=== PATIENT | female | born 1950 | race Caucasian/White ===

== ENCOUNTER 2019-06-18 13:52 | Inpatient (IN) ==
[~2019-06-18 13:52] MED LIST: *HR* Etomidate 20 MG/10 ML AMPUL IVP ONE; *HR* Midazolam HCl 2 MG/2 ML VIAL IV ONE; Aminoglycoside Consult 1 EACH MC ONE
[2019-06-18] MEDS ORDERED: Ondansetron 4 MG/2 ML VIAL IVP PRN ×2 (17:14→21:34)
[2019-06-18] MEDS ORDERED: Naloxone 0.4 MG/ML INJ IVP PRN ×2 (17:14→21:34)
[2019-06-18] MEDS ORDERED: Albuterol 2.5 MG/3 ML NEBULIZER IH PRN ×2 (17:17→21:34)
[2019-06-18] MEDS ORDERED: *HR* Heparin 5,000 UNIT/ML VIAL SQ SCH (18:00)
[2019-06-18] MEDS ORDERED: methylPREDNISolone 125 MG/2 ML VIAL IVP SCH (18:00)
[2019-06-18 18:18] LABS: ABG Base Excess 1 mEq/L (-2 to 3); ABG HCO3 34 mEq/L (21-27); ABG Oxygen Saturation 94 % (95-98); ABG PCO2 107 mmHg (35-45); ABG PH 7.11 pH Units (7.32-7.45); ABG PO2 101 mmHg (85-104); ABG TCO2 37 mEq/L (20-26); Blood Gas Modality AVAPS; Blood Gas VT 500 cc
[2019-06-18] MEDS ORDERED: methylPREDNISolone 125 MG/2 ML VIAL IVP STA ×2 (18:26→21:34)
[2019-06-18] MEDS ORDERED: Ipratropium Neb 0.5 MG NEBULIZER IH STA (18:26)
[2019-06-18] MEDS ORDERED: Levalbuterol Neb 1.25 MG/3 ML IH STA (18:26)
[2019-06-18 18:28] LABS: Basophils % 0.1 %; Hematocrit 39.5 % (35.3-44.9); Hemoglobin 12.3 g/dL (11.5-15.4); Immature Granulocytes % 0.3 % (0-4); Lymphocytes # 0.2 K/mcL (0.6-4.6); Lymphocytes % 2.4 %; Mean Corpuscular HGB Conc 31.1 g/dL (31.6-35.5); Mean Corpuscular Hemoglobin 33.5 pg (28.0-33.3); Mean Corpuscular Volume 107.6 fL (83.0-100.0); Mean Platelet Volume 11.1 fL (9.4-12.4); Monocytes # 0.8 K/mcL (0.0-1.3); Monocytes % 8.7 %; Neutrophils # 8.2 K/mcL (1.6-8.9); Platelet Count 161 K/mcL (140-400); Red Blood Count 3.67 M/mcL (3.82-4.97); Red Cell Distribution Width 12.9 % (11.5-14.5); Segmented Neutrophils % 88.5 %; White Blood Count 9.3 K/mcL (4.3-11.1)
[2019-06-18 18:35] LABS: BUN/Creatinine Ratio 36 (6-26); Blood Urea Nitrogen 18 mg/dL (8-23); Calcium 8.7 mg/dL (8.6-10.3); Carbon Dioxide 30 mEq/L (23-29); Chloride 111 mEq/L (98-107); Glucose 171 mg/dL (70-105); Osmolality,Calculated 306 (280-300); Potassium 4.1 mEq/L (3.5-5.1); Sodium 145 mEq/L (136-145); eGFR For African Americans > 60 (> 60); eGFR For Non-African Americans > 60 (> 60)
[2019-06-18 18:41] LABS: Polychromasia 1+ (Not Present)
[2019-06-18] MEDS ORDERED: Artificial Tears SOLN 15 ML BOTTLE BOTH EYES PRN ×2 (19:21→21:34)
[2019-06-18] MEDS ORDERED: FentaNYL (PF) 1,000 MCG in 0.9 % Sodium Chloride 80 ML IVC SCH (19:30)
[2019-06-18] MEDS ORDERED: Ipratropium/Albuterol Neb 3 ML IH SCH (20:00)
[2019-06-18] MEDS ORDERED: Artificial Tears SOLN 15 ML BOTTLE BOTH EYES SCH (20:00)
[2019-06-18] MEDS ORDERED: Chlorhexidine Rinse 15 ML MOUTHWASH MM SCH (21:00)
[2019-06-18] MEDS: FentaNYL (PF) 1,000 MCG in 0.9 % Sodium Chloride 80 ML IVC SCH (22:07)
[2019-06-18] MEDS: Artificial Tears SOLN 15 ML BOTTLE BOTH EYES SCH (23:02)
[2019-06-19] MEDS ORDERED: methylPREDNISolone 125 MG/2 ML VIAL IVP SCH
[2019-06-19] MEDS: Ipratropium/Albuterol Neb 3 ML IH SCH ×7 (00:22→23:23)
[2019-06-19 00:40] LABS: ABG Base Excess 2 mEq/L (-2 to 3); ABG HCO3 32 mEq/L (21-27); ABG Oxygen Saturation 100 % (95-98); ABG PCO2 79 mmHg (35-45); ABG PH 7.21 pH Units (7.32-7.45); ABG PO2 383 mmHg (85-104); ABG TCO2 34 mEq/L (20-26); Blood Gas Modality AF; Blood Gas VT 450 cc
[2019-06-19 00:57] LABS: Adenovirus Not Detected (Not Detect); Bordetella Pertussis Not Detected (Not Detect); Chlamydophila pneumoniae Not Detected (Not Detect); Coronavirus 229E Not Detected (Not Detect); Coronavirus HKU1 Not Detected (Not Detect); Coronavirus NL63 Not Detected (Not Detect); Coronavirus OC43 Not Detected (Not Detect); Human Metapneumovirus Not Detected (Not Detect); Human Rhinovirus/Enterovirus Not Detected (Not Detect); Influenza A Subtype 2009 H1 Not Detected (Not Detect); Influenza B Not Detected (Not Detect); Mycoplasma pneumoniae Not Detected (Not Detect); Parainfluenza Virus 1 Not Detected (Not Detect); Parainfluenza Virus 2 Not Detected (Not Detect); Parainfluenza Virus 3 Not Detected (Not Detect); Parainfluenza Virus 4 Not Detected (Not Detect); Respiratory Syncytial Virus Not Detected (Not Detect)
[2019-06-19] MEDS: Artificial Tears SOLN 15 ML BOTTLE BOTH EYES SCH ×6 (04:56→23:38)
[2019-06-19] MEDS: methylPREDNISolone 125 MG/2 ML VIAL IVP SCH ×4 (05:00→23:38)
[2019-06-19] MEDS: *HR* Heparin 5,000 UNIT/ML VIAL SQ SCH ×2 (05:00→16:54)
[2019-06-19 05:26] LABS: ABG Base Excess 2 mEq/L (-2 to 3); ABG HCO3 30 mEq/L (21-27); ABG Oxygen Saturation 87 % (95-98); ABG PCO2 63 mmHg (35-45); ABG PH 7.29 pH Units (7.32-7.45); ABG PO2 60 mmHg (85-104); ABG TCO2 32 mEq/L (20-26); Blood Gas Modality AF; Blood Gas VT 450 cc
[2019-06-19] MEDS: Pantoprazole 40 MG VIAL IVP SCH (08:39)
[2019-06-19] MEDS: Chlorhexidine Rinse 15 ML MOUTHWASH MM SCH ×2 (08:39→20:02)
[2019-06-19] MEDS: cefTRIAXone 1,000 MG in Water for inj. (sterile) 10 ML IVP SCH (08:39)
[2019-06-19] MEDS ORDERED: Pantoprazole 40 MG VIAL IVP SCH (09:00)
[2019-06-19] MEDS ORDERED: cefTRIAXone 1,000 MG in Water for inj. (sterile) 10 ML IVP SCH (09:00)
[2019-06-19] MEDS: FentaNYL (PF) 1,000 MCG in 0.9 % Sodium Chloride 80 ML IVC SCH (09:44)
[2019-06-19 11:22] LABS: Prothrombin Time 11.6 Seconds (9.4-12.1)
[2019-06-19 11:26] LABS: Hematocrit 36.5 % (35.3-44.9); Hemoglobin 11.3 g/dL (11.5-15.4); Immature Granulocytes % 0.3 % (0-4); Lymphocytes # 0.2 K/mcL (0.6-4.6); Lymphocytes % 3.3 %; Mean Corpuscular Hemoglobin 32.8 pg (28.0-33.3); Mean Corpuscular Volume 105.8 fL (83.0-100.0); Mean Platelet Volume 11.1 fL (9.4-12.4); Monocytes # 0.4 K/mcL (0.0-1.3); Monocytes % 5.6 %; Neutrophils # 5.7 K/mcL (1.6-8.9); Platelet Count 161 K/mcL (140-400); Red Blood Count 3.45 M/mcL (3.82-4.97); Red Cell Distribution Width 13.1 % (11.5-14.5); Segmented Neutrophils % 90.8 %; White Blood Count 6.3 K/mcL (4.3-11.1)
[2019-06-19 11:39] LABS: BUN/Creatinine Ratio 49 (6-26); Blood Urea Nitrogen 24 mg/dL (8-23); Carbon Dioxide 31 mEq/L (23-29); Chloride 109 mEq/L (98-107); Glucose 136 mg/dL (70-105); Osmolality,Calculated 312 (280-300); Potassium 4.2 mEq/L (3.5-5.1); Sodium 148 mEq/L (136-145); eGFR For African Americans > 60 (> 60); eGFR For Non-African Americans > 60 (> 60)
[2019-06-19 11:57] LABS: Platelet Estimate Normal (Normal)
[2019-06-19] MEDS ORDERED: Azithromycin 500 MG in 0.9 % Sodium Chloride 250 ML IVPB SCH (16:00)
[2019-06-19] MEDS: Azithromycin 500 MG in 0.9 % Sodium Chloride 250 ML IVPB SCH (16:54)
[2019-06-19] MEDS ORDERED: *HR* Metoprolol 5 MG/5 ML VIAL IVP ONE (20:54)
[2019-06-19] MEDS: Budesonide/Formoterol 160/4.5 1 PUFF INH IH SCH (21:19)
[2019-06-20] MEDS: FentaNYL (PF) 1,000 MCG in 0.9 % Sodium Chloride 80 ML IVC SCH ×3 (01:10→23:21)
[2019-06-20] MEDS: Ipratropium/Albuterol Neb 3 ML IH SCH ×6 (03:16→23:50)
[2019-06-20] MEDS: Artificial Tears SOLN 15 ML BOTTLE BOTH EYES SCH ×6 (03:25→23:20)
[2019-06-20 03:56] LABS: Basophils % 0.2 %; Hematocrit 34.5 % (35.3-44.9); Hemoglobin 10.6 g/dL (11.5-15.4); Immature Granulocytes % 1.1 % (0-4); Lymphocytes # 0.2 K/mcL (0.6-4.6); Lymphocytes % 4.1 %; Mean Corpuscular HGB Conc 30.7 g/dL (31.6-35.5); Mean Corpuscular Hemoglobin 32.4 pg (28.0-33.3); Mean Corpuscular Volume 105.5 fL (83.0-100.0); Monocytes # 0.3 K/mcL (0.0-1.3); Monocytes % 6.1 %; Neutrophils # 4.1 K/mcL (1.6-8.9); Platelet Count 175 K/mcL (140-400); Red Blood Count 3.27 M/mcL (3.82-4.97); Red Cell Distribution Width 13.2 % (11.5-14.5); Segmented Neutrophils % 88.5 %; White Blood Count 4.6 K/mcL (4.3-11.1)
[2019-06-20 04:12] LABS: BUN/Creatinine Ratio 59 (6-26); Blood Urea Nitrogen 30 mg/dL (8-23); Calcium 9.4 mg/dL (8.6-10.3); Carbon Dioxide 32 mEq/L (23-29); Chloride 111 mEq/L (98-107); Glucose 154 mg/dL (70-105); Osmolality,Calculated 325 (280-300); Potassium 3.6 mEq/L (3.5-5.1); Sodium 153 mEq/L (136-145); eGFR For African Americans > 60 (> 60); eGFR For Non-African Americans > 60 (> 60)
[2019-06-20 04:24] LABS: ABG Base Excess 6 mEq/L (-2 to 3); ABG HCO3 33 mEq/L (21-27); ABG Oxygen Saturation 97 % (95-98); ABG PCO2 59 mmHg (35-45); ABG PH 7.35 pH Units (7.32-7.45); ABG PO2 96 mmHg (85-104); ABG TCO2 35 mEq/L (20-26); Blood Gas Modality VC; Blood Gas VT 400 cc
[2019-06-20 04:36] LABS: Platelet Estimate Decreased (Normal)
[2019-06-20] MEDS: *HR* Heparin 5,000 UNIT/ML VIAL SQ SCH ×2 (05:27→17:51)
[2019-06-20] MEDS: methylPREDNISolone 125 MG/2 ML VIAL IVP SCH ×4 (05:27→23:20)
[2019-06-20] MEDS: Budesonide/Formoterol 160/4.5 1 PUFF INH IH SCH ×2 (08:09→19:50)
[2019-06-20] MEDS: Chlorhexidine Rinse 15 ML MOUTHWASH MM SCH ×2 (08:19→19:33)
[2019-06-20] MEDS: cefTRIAXone 1,000 MG in Water for inj. (sterile) 10 ML IVP SCH (08:25)
[2019-06-20] MEDS: Pantoprazole 40 MG VIAL IVP SCH (08:25)
[2019-06-20] MEDS: Potassium Chloride 20 MEQ in D5% in Water 1,000 ML IVC SCH ×2 (13:55→22:00)
[2019-06-20] MEDS: Dexmedetomidine HCl 400 MCG/100 ML MLS IVC SCH (13:56)
[2019-06-20 15:30] LABS: BUN/Creatinine Ratio 61 (6-26); Blood Urea Nitrogen 30 mg/dL (8-23); Calcium 9.2 mg/dL (8.6-10.3); Carbon Dioxide 30 mEq/L (23-29); Chloride 112 mEq/L (98-107); Glucose 160 mg/dL (70-105); Osmolality,Calculated 324 (280-300); Potassium 3.5 mEq/L (3.5-5.1); Sodium 152 mEq/L (136-145); eGFR For African Americans > 60 (> 60); eGFR For Non-African Americans > 60 (> 60)
[2019-06-20] MEDS: Azithromycin 500 MG in 0.9 % Sodium Chloride 250 ML IVPB SCH (17:52)
[2019-06-20 18:59] LABS: BUN/Creatinine Ratio 63 (6-26); Blood Urea Nitrogen 30 mg/dL (8-23); Calcium 9.1 mg/dL (8.6-10.3); Carbon Dioxide 30 mEq/L (23-29); Chloride 110 mEq/L (98-107); Glucose 198 mg/dL (70-105); Osmolality,Calculated 324 (280-300); Potassium 3.5 mEq/L (3.5-5.1); Sodium 151 mEq/L (136-145); eGFR For African Americans > 60 (> 60); eGFR For Non-African Americans > 60 (> 60)
[2019-06-20 23:00] LABS: BUN/Creatinine Ratio 57 (6-26); Blood Urea Nitrogen 28 mg/dL (8-23); Calcium 9.1 mg/dL (8.6-10.3); Carbon Dioxide 30 mEq/L (23-29); Chloride 111 mEq/L (98-107); Glucose 195 mg/dL (70-105); Osmolality,Calculated 313 (280-300); Potassium 3.5 mEq/L (3.5-5.1); Sodium 146 mEq/L (136-145); eGFR For African Americans > 60 (> 60); eGFR For Non-African Americans > 60 (> 60)
[2019-06-21] MEDS: Ipratropium/Albuterol Neb 3 ML IH SCH ×6 (03:22→23:17)
[2019-06-21] MEDS: Artificial Tears SOLN 15 ML BOTTLE BOTH EYES SCH ×6 (04:17→23:16)
[2019-06-21] MEDS: *HR* Heparin 5,000 UNIT/ML VIAL SQ SCH ×2 (05:22→18:03)
[2019-06-21] MEDS: methylPREDNISolone 125 MG/2 ML VIAL IVP SCH ×4 (05:22→23:15)
[2019-06-21 05:59] LABS: ABG Base Excess 6 mEq/L (-2 to 3); ABG HCO3 32 mEq/L (21-27); ABG Oxygen Saturation 96 % (95-98); ABG PCO2 49 mmHg (35-45); ABG PH 7.42 pH Units (7.32-7.45); ABG PO2 81 mmHg (85-104); ABG TCO2 33 mEq/L (20-26); Blood Gas Modality AF; Blood Gas VT 400 cc
[2019-06-21] MEDS: Budesonide/Formoterol 160/4.5 1 PUFF INH IH SCH ×2 (07:55→19:30)
[2019-06-21] MEDS: Pantoprazole 40 MG VIAL IVP SCH (08:36)
[2019-06-21] MEDS: cefTRIAXone 1,000 MG in Water for inj. (sterile) 10 ML IVP SCH (08:36)
[2019-06-21] MEDS: Chlorhexidine Rinse 15 ML MOUTHWASH MM SCH ×2 (08:36→20:07)
[2019-06-21] MEDS: Dexmedetomidine HCl 400 MCG/100 ML MLS IVC SCH ×2 (09:45→22:41)
[2019-06-21] MEDS ORDERED: Furosemide 20 MG/2 ML VIAL IVP ONE (11:03)
[2019-06-21] MEDS ORDERED: Potassium Effervescent 25 MEQ TABLET.EFF PO ONE (11:04)
[2019-06-21] MEDS ORDERED: Potassium Chloride 40 MEQ, Lidocaine 1% 2 ML in 0.9 % Sodium Chloride 500 ML IVPB ONE (12:03)
[2019-06-21] MEDS: *HR* Metoprolol 5 MG/5 ML VIAL IVP PRN ×2 (13:06→23:15)
[2019-06-21 15:22] LABS: BUN/Creatinine Ratio 50 (6-26); Blood Urea Nitrogen 27 mg/dL (8-23); Calcium 9.6 mg/dL (8.6-10.3); Carbon Dioxide 31 mEq/L (23-29); Chloride 109 mEq/L (98-107); Glucose 152 mg/dL (70-105); Osmolality,Calculated 314 (280-300); Potassium 3.9 mEq/L (3.5-5.1); Sodium 148 mEq/L (136-145); eGFR For African Americans > 60 (> 60); eGFR For Non-African Americans > 60 (> 60)
[2019-06-21] MEDS: FentaNYL (PF) 1,000 MCG in 0.9 % Sodium Chloride 80 ML IVC SCH (16:40)
[2019-06-21] MEDS: Azithromycin 500 MG in 0.9 % Sodium Chloride 250 ML IVPB SCH (18:00)
[2019-06-21] MEDS ORDERED: QUEtiapine Fumarate 25 MG TABLET PO SCH (21:00)
[2019-06-21] MEDS ORDERED: *HR* Metoprolol 5 MG/5 ML VIAL IVP PRN (23:07)
[2019-06-22] MEDS: FentaNYL (PF) 1,000 MCG in 0.9 % Sodium Chloride 80 ML IVC SCH ×3 (00:51→17:00)
[2019-06-22] MEDS: Ipratropium/Albuterol Neb 3 ML IH SCH ×6 (03:21→23:35)
[2019-06-22 03:59] LABS: ABG Base Excess 9 mEq/L (-2 to 3); ABG HCO3 34 mEq/L (21-27); ABG Oxygen Saturation 99 % (95-98); ABG PCO2 48 mmHg (35-45); ABG PH 7.46 pH Units (7.32-7.45); ABG PO2 113 mmHg (85-104); ABG TCO2 36 mEq/L (20-26); Blood Gas Modality ASSIST CONTROL; Blood Gas VT 400 cc
[2019-06-22] MEDS: Artificial Tears SOLN 15 ML BOTTLE BOTH EYES SCH ×6 (04:12→23:04)
[2019-06-22] MEDS: methylPREDNISolone 125 MG/2 ML VIAL IVP SCH ×2 (05:21→13:34)
[2019-06-22] MEDS: *HR* Heparin 5,000 UNIT/ML VIAL SQ SCH ×2 (05:21→17:27)
[2019-06-22] MEDS: Dexmedetomidine HCl 400 MCG/100 ML MLS IVC SCH ×3 (05:22→19:33)
[2019-06-22 05:48] LABS: Basophils % 0.5 %; Hematocrit 34.9 % (35.3-44.9); Hemoglobin 11.5 g/dL (11.5-15.4); Immature Granulocytes % 4.8 % (0-4); Lymphocytes # 0.3 K/mcL (0.6-4.6); Lymphocytes % 3.7 %; Mean Corpuscular Hemoglobin 33.2 pg (28.0-33.3); Mean Corpuscular Volume 100.9 fL (83.0-100.0); Mean Platelet Volume 10.1 fL (9.4-12.4); Monocytes # 0.4 K/mcL (0.0-1.3); Neutrophils # 7.5 K/mcL (1.6-8.9); Platelet Count 193 K/mcL (140-400); Red Blood Count 3.46 M/mcL (3.82-4.97); Red Cell Distribution Width 13.4 % (11.5-14.5)
[2019-06-22 05:49] LABS: White Blood Count 8.7 K/mcL (4.3-11.1)
[2019-06-22 06:07] LABS: Alanine Aminotransferase 9 Units/L (7-52); Albumin 3.6 g/dL (3.5-5.7); Albumin/Globulin Ratio 1.6 (1.1-2.2); Alkaline Phosphatase 53 Units/L (34-104); Aspartate Amino Transferase 11 Units/L (13-39); BUN/Creatinine Ratio 53 (6-26); Bilirubin,Total 0.4 mg/dL (0.3-1.0); Blood Urea Nitrogen 24 mg/dL (8-23); Carbon Dioxide 34 mEq/L (23-29); Chloride 104 mEq/L (98-107); Globulin 2.3 g/dL (2.4-3.5); Glucose 150 mg/dL (70-105); Magnesium 1.9 mg/dL (1.6-2.6); Osmolality,Calculated 313 (280-300); Potassium 3.6 mEq/L (3.5-5.1); Sodium 148 mEq/L (136-145); Total Protein 5.9 g/dL (6.4-8.9); eGFR For African Americans > 60 (> 60); eGFR For Non-African Americans > 60 (> 60)
[2019-06-22] MEDS: Budesonide/Formoterol 160/4.5 1 PUFF INH IH SCH ×2 (07:18→19:49)
[2019-06-22] MEDS: Pantoprazole 40 MG VIAL IVP SCH (08:49)
[2019-06-22] MEDS: cefTRIAXone 1,000 MG in Water for inj. (sterile) 10 ML IVP SCH (08:49)
[2019-06-22] MEDS: Chlorhexidine Rinse 15 ML MOUTHWASH MM SCH ×2 (08:49→19:33)
[2019-06-22] MEDS ORDERED: *HR* Metoprolol 5 MG/5 ML VIAL IVP ONE ×2 (10:04→10:06)
[2019-06-22] MEDS: Azithromycin 500 MG in 0.9 % Sodium Chloride 250 ML IVPB SCH (17:22)
[2019-06-22] MEDS: MethylPREDNISolone 40 MG/ML VIAL IVP SCH (17:23)
[2019-06-22] MEDS: *HR* Metoprolol 5 MG/5 ML VIAL IVP PRN (17:23)
[2019-06-22] MEDS: Aspirin Enteric Coated 81 MG Tablet PO SCH (17:25)
[2019-06-23] MEDS: FentaNYL (PF) 1,000 MCG in 0.9 % Sodium Chloride 80 ML IVC SCH (01:00)
[2019-06-23] MEDS: Dexmedetomidine HCl 400 MCG/100 ML MLS IVC SCH ×2 (01:09→07:40)
[2019-06-23] MEDS: Artificial Tears SOLN 15 ML BOTTLE BOTH EYES SCH (03:23)
[2019-06-23] MEDS: Ipratropium/Albuterol Neb 3 ML IH SCH ×6 (03:24→23:45)
[2019-06-23 03:40] LABS: Basophils # 0.1 K/mcL (0.0-0.2); Hematocrit 35.7 % (35.3-44.9); Hemoglobin 11.2 g/dL (11.5-15.4); Immature Granulocytes % 6.9 % (0-4); Lymphocytes # 0.6 K/mcL (0.6-4.6); Lymphocytes % 6.5 %; Mean Corpuscular HGB Conc 31.4 g/dL (31.6-35.5); Mean Corpuscular Hemoglobin 32.7 pg (28.0-33.3); Mean Corpuscular Volume 104.1 fL (83.0-100.0); Mean Platelet Volume 10.1 fL (9.4-12.4); Monocytes # 0.9 K/mcL (0.0-1.3); Monocytes % 9.7 %; Neutrophils # 6.9 K/mcL (1.6-8.9); Platelet Count 175 K/mcL (140-400); Red Blood Count 3.43 M/mcL (3.82-4.97); Red Cell Distribution Width 13.3 % (11.5-14.5); Segmented Neutrophils % 75.9 %; White Blood Count 9.1 K/mcL (4.3-11.1)
[2019-06-23 03:45] LABS: VBG Ionized Calcium 1.19 mmol/L (1.15-1.35)
[2019-06-23 03:59] LABS: BUN/Creatinine Ratio 42 (6-26); Blood Urea Nitrogen 16 mg/dL (8-23); Calcium 8.8 mg/dL (8.6-10.3); Carbon Dioxide 38 mEq/L (23-29); Chloride 101 mEq/L (98-107); Glucose 116 mg/dL (70-105); Magnesium 2.1 mg/dL (1.6-2.6); Osmolality,Calculated 298 (280-300); Potassium 4.3 mEq/L (3.5-5.1); Sodium 143 mEq/L (136-145); eGFR For African Americans > 60 (> 60); eGFR For Non-African Americans > 60 (> 60)
[2019-06-23 04:24] LABS: Platelet Estimate Normal (Normal)
[2019-06-23 05:28] LABS: ABG Base Excess 9 mEq/L (-2 to 3); ABG HCO3 36 mEq/L (21-27); ABG Oxygen Saturation 98 % (95-98); ABG PCO2 58 mmHg (35-45); ABG PO2 102 mmHg (85-104); ABG TCO2 38 mEq/L (20-26); Blood Gas Modality ASSIST CONTROL; Blood Gas VT 400 cc
[2019-06-23] MEDS: MethylPREDNISolone 40 MG/ML VIAL IVP SCH ×2 (05:54→18:12)
[2019-06-23] MEDS: *HR* Heparin 5,000 UNIT/ML VIAL SQ SCH ×2 (05:54→18:12)
[2019-06-23] MEDS: Chlorhexidine Rinse 15 ML MOUTHWASH MM SCH (08:25)
[2019-06-23] MEDS: Aspirin Enteric Coated 81 MG Tablet PO SCH (08:25)
[2019-06-23] MEDS: Pantoprazole 40 MG VIAL IVP SCH (08:26)
[2019-06-23] MEDS: cefTRIAXone 1,000 MG in Water for inj. (sterile) 10 ML IVP SCH (08:26)
[2019-06-23] MEDS: Budesonide/Formoterol 160/4.5 1 PUFF INH IH SCH ×2 (09:56→20:25)
[2019-06-23] MEDS: *HR* Metoprolol 5 MG/5 ML VIAL IVP PRN (19:19)
[2019-06-23] MEDS ORDERED: 0.9 % Sodium Chloride 250 ML IV ONE (19:44)
[2019-06-23] MEDS ORDERED: 0.9 % Sodium Chloride 250 ML ONE (22:33)
[2019-06-24] MEDS: Ipratropium/Albuterol Neb 3 ML IH SCH ×6 (00:05→20:13)
[2019-06-24] MEDS: *HR* Metoprolol 5 MG/5 ML VIAL IVP PRN (02:03)
[2019-06-24] MEDS: *HR* Heparin 5,000 UNIT/ML VIAL SQ SCH ×2 (05:51→17:56)
[2019-06-24 06:58] LABS: VBG Ionized Calcium 1.11 mmol/L (1.15-1.35)
[2019-06-24 07:09] LABS: Hematocrit 38.9 % (35.3-44.9); Hemoglobin 12.4 g/dL (11.5-15.4); Mean Corpuscular HGB Conc 31.9 g/dL (31.6-35.5); Mean Corpuscular Hemoglobin 32.5 pg (28.0-33.3); Mean Corpuscular Volume 102.1 fL (83.0-100.0); Mean Platelet Volume 10.5 fL (9.4-12.4); Platelet Count 200 K/mcL (140-400); Red Blood Count 3.81 M/mcL (3.82-4.97); White Blood Count 10.4 K/mcL (4.3-11.1)
[2019-06-24] MEDS: Budesonide/Formoterol 160/4.5 1 PUFF INH IH SCH ×2 (07:23→20:13)
[2019-06-24 07:25] LABS: BUN/Creatinine Ratio 39 (6-26); Blood Urea Nitrogen 15 mg/dL (8-23); Carbon Dioxide 36 mEq/L (23-29); Chloride 96 mEq/L (98-107); Glucose 97 mg/dL (70-105); Osmolality,Calculated 293 (280-300); Phosphorous 2.8 mg/dL (2.7-4.5); Potassium 4.1 mEq/L (3.5-5.1); Sodium 141 mEq/L (136-145); eGFR For African Americans > 60 (> 60); eGFR For Non-African Americans > 60 (> 60)
[2019-06-24 07:50] LABS: Lymphocytes # 1.3 K/mcL (0.6-4.6); Monocytes # 0.4 K/mcL (0.0-1.3); Neutrophils # 8.7 K/mcL (1.6-8.9)
[2019-06-24 07:52] LABS: Platelet Estimate Normal (Normal); Reactive Lymphocytes Present (Not Present)
[2019-06-24] MEDS ORDERED: predniSONE 20 MG TABLET PO SCH (09:00)
[2019-06-24] MEDS ORDERED: Cefuroxime PO 500 MG TABLET PO SCH (09:00)
[2019-06-24] MEDS: Aspirin Enteric Coated 81 MG Tablet PO SCH (09:01)
[2019-06-24] MEDS ORDERED: Albuterol 2.5 MG/3 ML NEBULIZER IH PRN (15:08)
[2019-06-24] MEDS ORDERED: Acyclovir 200 MG CAPSULE PO SCH (16:00)
[2019-06-24] MEDS: Acyclovir 200 MG CAPSULE PO SCH ×2 (17:54→21:12)
[2019-06-24] MEDS: Cefuroxime PO 500 MG TABLET PO SCH (21:12)
[2019-06-25] MEDS: Ipratropium/Albuterol Neb 3 ML IH SCH ×6 (00:15→22:47)
[2019-06-25] MEDS: Acyclovir 200 MG CAPSULE PO SCH ×3 (00:54→12:09)
[2019-06-25] MEDS: *HR* Heparin 5,000 UNIT/ML VIAL SQ SCH ×2 (05:48→17:01)
[2019-06-25] MEDS: Budesonide/Formoterol 160/4.5 1 PUFF INH IH SCH ×2 (07:52→22:47)
[2019-06-25] MEDS: Aspirin Enteric Coated 81 MG Tablet PO SCH (08:05)
[2019-06-25] MEDS: predniSONE 20 MG TABLET PO SCH (08:05)
[2019-06-25] MEDS: Cefuroxime PO 500 MG TABLET PO SCH ×2 (08:05→20:10)
[2019-06-25] MEDS ORDERED: NON-FORMULARY MEDICATION 1 EACH EACH (Fluticasone/Umeclidin/Vilanter [Trelegy Ellipta 100- IH SCH (09:00)
[2019-06-25] MEDS: Tiotropium 18 MCG inhalation IH SCH (10:05)
[2019-06-25] MEDS: valACYclovir 500 MG TABLET PO SCH (14:48)
[2019-06-25] MEDS: Sennosides 8.6 MG TABLET PO SCH ×2 (14:48→20:10)
[2019-06-26] MEDS: Ipratropium/Albuterol Neb 3 ML IH SCH ×2 (03:27→10:54)
[2019-06-26] MEDS: *HR* Heparin 5,000 UNIT/ML VIAL SQ SCH (05:29)
[2019-06-26 06:05] LABS: Basophils % 0.6 %; Hematocrit 38.8 % (35.3-44.9); Hemoglobin 12.7 g/dL (11.5-15.4); Immature Granulocytes % 3.4 % (0-4); Lymphocytes # 0.6 K/mcL (0.6-4.6); Lymphocytes % 8.6 %; Mean Corpuscular HGB Conc 32.7 g/dL (31.6-35.5); Mean Corpuscular Hemoglobin 32.2 pg (28.0-33.3); Mean Corpuscular Volume 98.2 fL (83.0-100.0); Mean Platelet Volume 10.1 fL (9.4-12.4); Monocytes # 0.8 K/mcL (0.0-1.3); Monocytes % 11.2 %; Neutrophils # 5.2 K/mcL (1.6-8.9); Platelet Count 207 K/mcL (140-400); Red Blood Count 3.95 M/mcL (3.82-4.97); Segmented Neutrophils % 76.2 %; White Blood Count 6.8 K/mcL (4.3-11.1)
[2019-06-26 06:28] LABS: BUN/Creatinine Ratio 35 (6-26); Blood Urea Nitrogen 14 mg/dL (8-23); Calcium 8.6 mg/dL (8.6-10.3); Carbon Dioxide 37 mEq/L (23-29); Chloride 97 mEq/L (98-107); Glucose 94 mg/dL (70-105); Osmolality,Calculated 294 (280-300); Potassium 3.8 mEq/L (3.5-5.1); Sodium 142 mEq/L (136-145); eGFR For African Americans > 60 (> 60); eGFR For Non-African Americans > 60 (> 60)
[2019-06-26 06:52] VITALS: BP 116/71
[2019-06-26] MEDS ORDERED: DilTIAZem CD (24hr) 240 MG CAP.ER.24H PO SCH (09:00)
[2019-06-26] MEDS: Aspirin Enteric Coated 81 MG Tablet PO SCH (09:31)
[2019-06-26] MEDS: predniSONE 20 MG TABLET PO SCH (09:32)
[2019-06-26] MEDS: valACYclovir 500 MG TABLET PO SCH (09:33)
[2019-06-26] MEDS: Cefuroxime PO 500 MG TABLET PO SCH (09:33)
[2019-06-26] MEDS: Sennosides 8.6 MG TABLET PO SCH (09:34)
[2019-06-26] MEDS: Budesonide/Formoterol 160/4.5 1 PUFF INH IH SCH (10:54)
[2019-06-26] MEDS: Tiotropium 18 MCG inhalation IH SCH (10:54)
== END 2019-06-26 14:46 | disposition home or self-care (01) | DRG 207 ==
LOC: 2NNU → SUATTDRO 17:38 → ICNU 21:33 → 3ANU 06-24 18:40
PROVIDERS: ADMIT Student in an Organized Health Care Education/Training Program; ATTEND Internal Medicine